=== PATIENT | female | born 1975 | race Caucasian/White ===

== ENCOUNTER 2024-09-19 04:33 | Emergency (ER) | payer BC, OTHER ==
[2024-09-19] MEDS ORDERED: Xopenex 1.25 MG/0.5 ML UD NEBULE IH ONE (04:40)
[2024-09-19] MEDS ORDERED: Sodium Chloride 3 ML UD NEBULES IH ONE (04:40)
[2024-09-19 04:46] VITALS: TEMP 98
--- NOTE | 2024-09-19 04:53 | ERPHSYRPT ---
- History of Present Illness Time Seen by Provider: 09/19/24 04:35 Source: patient, EMS Exam Limitations: clinical condition Patient Subjective Stated Complaint: c/o asthma attack and SOB Triage Nursing Assessment: patient brought to ED by ambulance with c/o asthma attack and shortness of breath. patient was outside burning leaves and started to feel SOB last night around 2200, patient has a duoneb and solumedrol per EMS, patiwnt was 95-97% on RA after treatment. patient has wheezing throughout, skin w/n/d, brought in by stretcher Physician History: This is a 49-year-old white female patient of Dr. Rhoades who arrives to the emergency department transported by the paramedics secondary to shortness of breath and wheezing. Those symptoms began last evening at approximately 10 PM. Earlier in the afternoon, the patient was burning leaves at her home. Around 10 PM last night she noticed shortness of breath and it had been increasing despite the use of her albuterol inhaler and nebulizer treatment. The paramedics provided her with a DuoNeb treatment as well as 125 mg of intravenous Solu- Medrol. She arrives to the emergency department a heart rate of 122 bpm on the front desk monitor and a room air oxygen saturation level of 95%. Clinically, she states that she is breathing better at this time. She has no chest pain. She has no fevers. She has no abdominal pain. She has had no nausea vomiting or diarrhea symptoms. Timing/Duration: yesterday Severity of Dyspnea-Max: moderate Severity of Dyspnea-Current: mild (To moderate) Possible Cause: occasional episodes Modifying Factors: Improves With: albuterol nebulizer, oxygen, rest Associated Symptoms: wheezing, No chest pain/discomfort Allergies/Adverse Reactions: nitroglycerin [From Nitrostat] Allergy (Verified 09/19/24 04:35) Penicillins Allergy (Verified 09/19/24 04:35) Home Medications: dilTIAZem HCL [Cardizem] 30 mg BID 05/13/15 [History] Hx Tetanus, Diphtheria Vaccination/Date Given: No (unsure) Hx Influenza Vaccination/Date Given: Yes Hx Pneumococcal Vaccination/Date Given: No Travel Risk - International Travel Have you traveled outside of the country in past 3 weeks: No - Emerging Infectious Disease Are you exhibiting symptoms associated with any current EIDs: Yes Symptoms: Shortness of Breath - Review of Systems Constitutional: No Symptoms Eyes: No Symptoms Ears, Nose, & Throat: No Symptoms Respiratory: Dyspnea, Wheezing Cardiac: No Symptoms Abdominal/Gastrointestinal: No Symptoms Genitourinary Symptoms: No Symptoms Musculoskeletal: No Symptoms Skin: No Symptoms Neurological: No Symptoms Psychological: No Symptoms Endocrine: No Symptoms Hematologic/Lymphatic: No Symptoms Immunological/Allergic: No Symptoms All Other Systems: Reviewed and Negative - Past Medical History Pertinent Past Medical History: Yes Cardiac History: Arrhythmia, Other Respiratory History: Asthma Other Medical History: HX OF MVP - Past Surgical History Past Surgical History: Yes Female Surgical History: Hysterectomy Other Surgical History: D&C - Female History Hx Last Menstrual Period: unsure Hx Now: No (hysterectomy) - Social History Smoking Status: Never smoker Exposure to second hand smoke: No Drug Use: none - Social Determinants of Health Will the patient participate in the screening: Yes Do you worry about a steady place to live?: No Do you have any problems with any of the following?: No known problems In the past 12 months,have you had to go without utilities?: No Transportation Issues: No Has anyone in your support network made you feel unsafe?: No Have you or anyone in your house had to go w/o enough food: No - Nursing Vital Signs Nursing Vital Signs: Initial Vital Signs Pulse Rate 129 H 09/19/24 04:31 Respiratory Rate 23 09/19/24 04:31 Blood Pressure 105/89 09/19/24 04:31 O2 Sat by Pulse Oximetry 94 L 09/19/24 04:31 Pain Scale Pain Intensity 0 - Physical Exam General Appearance: mild distress, alert, anxiety, thin Eye Exam: PERRL/EOMI, eyes nml inspection Ears, Nose, Throat Exam: hearing grossly normal, normal ENT inspection, normal pharynx Neck Exam: normal inspection, non-tender, supple, full range of motion Respiratory Exam: respiratory distress (Mild), airway intact, wheezing (Bilateral diffuse expiratory wheezing), No chest tenderness Cardiovascular/Chest Exam: tachycardia Abdominal/Gastrointestinal Exam: soft, normal bowel sounds, No tenderness Rectal Exam: not done Extremity Exam: non-tender, normal range of motion, normal inspection, no calf tenderness, no pedal edema, pelvis stable Neurologic Exam: alert, oriented x 3, cooperative, frame coverer II-XII nml as tested, sensation nml Skin Exam: normal color, warm, dry Lymphatic Exam: No adenopathy SpO2 Interpretation: normal SpO2: 95 O2 Delivery: Room Air - Course Nursing assessment & vital signs reviewed: Yes Ordered Tests: Active Orders 24 hr Category Date Time Status CHEST 1 VIEW (PORTABLE) Stat Exams 09/19/24 04:54 Taken BLOOD CULTURE Stat Lab 09/19/24 05:26 Received BMP Stat Lab 09/19/24 05:26 Completed CBC W DIFF Stat Lab 09/19/24 05:26 Completed Manual Differential NC Stat Lab 09/19/24 05:26 Completed Respiratory Therapy Assessment DAILY RT 09/19/24 04:56 Active Medication Summary Discontinued Medications Generic Name Dose Route Start Last Admin Trade Name Freq PRN Reason Stop Dose Admin Methylprednisolone Sodium 0 mg 09/19/24 05:13 09/19/24 05:27 Succinate 80 mg/ Sterile Water IV 09/19/24 05:14 80 mg 2 ml STAT ONE Administration Doxycycline Hyclate 100 mg 09/19/24 06:06 09/19/24 06:09 Doxycycline Hyclate 100 Mg Tablet PO 09/19/24 06:07 100 mg STAT ONE Administration Doxycycline Hyclate Confirm 09/19/24 06:09 Doxycycline Hyclate 100 Mg Tablet Administered 09/19/24 06:10 Dose 100 mg .ROUTE .STK-MED ONE Levalbuterol HCl 1.25 mg 09/19/24 04:55 09/19/24 04:55 Levalbuterol Hcl 1.25 Mg/0.5 Ml Neb IH 09/19/24 04:56 1.25 mg STAT ONE Administration Potassium Chloride 20 meq 09/19/24 05:53 09/19/24 06:03 Potassium Chloride Tab 10 Meq Tab PO 09/19/24 05:54 20 meq STAT ONE Administration Potassium Chloride Confirm 09/19/24 06:02 Potassium Chloride Tab 10 Meq Tab Administered 09/19/24 06:03 Dose 20 meq .ROUTE .STK-MED ONE Lab/Rad Data: Laboratory Result Diagrams 09/19/24 05:26 09/19/24 05:26 Laboratory Results 09/19/24 09/19/24 Range/Units 05: 05:26 WBC 24.5 H (3.98-10.04) x10^3/uL RBC 3.66 L (3.93-5.22) x10^6/uL Hgb 11.0 L (11.2-15.7) g/dL Hct 33.3 L (34.1-44.9) % MCV 91.0 (79.4-94.8) fL MCH 30.1 (25.6-32.2) pg MCHC 33.0 (32.2-35.5) g/dL RDW 12.9 (11.7-14.4) % Plt Count 226 (182-369) x10^3/uL MPV 9.3 L (9.4-12.3) fL Segmented Neutrophils 83 H (34.0-71.1) % Band Neutrophils 6 H (0.0-2.0) % Lymphocytes (Manual) 9 L (19.3-51.7) % Eosinophils (Manual) 2 (0.7-5.8) % Platelet Estimate NORMAL (NORMAL) RBC Morphology NORMAL Sodium 139 (135-145) mmol/L Potassium 3.0 L* (3.5-5.1) mmol/L Chloride 99 (98-107) mmol/L Carbon Dioxide 29 (22-30) mmol/L Anion Gap 13.6 (5-15) MEQ/L BUN 9 (7-17) mg/dL Creatinine 0.51 L (0.52-1.04) mg/dL Estimated GFR 115.1 ML/MIN Glucose 154 H (74-106) mg/dL Calcium 9.2 (8.4-10.2) mg/dL - Progress Progress: improved Air Movement: fair Progress Note: 09/19/24 04:52 My medical decision making and the assignment of moderate complexity to this patient's medical issue today is based on review of the patient's past medical history, review the patient's medication list, reviewed patient drug allergy list, history present illness and physical findings on examination. The workup in this patient includes placement of intravenous line, nebulizer treatments Xopenex, repeat Solu-Medrol 125 mg intravenously, CBC, BMP, and chest x-ray. Differential diagnosis includes but is not limited to upper respiratory infection, acute asthmatic attack/exacerbation, allergic reaction 09/19/24 06:03 I interpreted the patient's laboratory data results. Based on the laboratory data results, the patient does have a leukocytosis. This is most likely a stress reaction to her acute asthma attack/exacerbation. However, there are findings to suggest possibly an early infiltrate in the right lower lobe on her chest x-ray. In addition, she has a low potassium level 3.0. We will provide her with intravenous antibiotic and oral potassium level and remotely send antibiotics, steroids and potassium prescriptions to her pharmacy. 09/19/24 06:04 I interpreted the patient's preliminary chest x-ray report. My interpretation is that this patient has an early right lower lobe infiltrate. Blood Culture(s) Obtained: Yes Antibiotics given: Yes Counseled pt/family regarding: lab results, diagnosis, need for follow-up, rad results Medical Desision Making - Independent Historian Additional History obtained from: Medical Billing Service/EMT - Diagnostic Testing Diagnostic test were ordered, analyzed, and reviewed by me: Yes Radiological Interpretation: Interpreted by me - Risk of complications The pt has a mod risk of morbidity or mortality based on: Need for prescription drug management - Departure Departure Disposition: Home Clinical Impression: Acute asthma exacerbation, Right pulmonary infiltrate on CXR, Hypokalemia Condition: Stable Critical Care Time: No Referrals: LAVERNE RHOADES MD [Primary Care Provider, [facility]] - Follow up/PCP as directed Additional Instructions: Drink plenty of clear liquids before advancing your diet. Avoid exposure to any type of smoke. Use your nebulizers every 4 hours while awake for the next 48 hours. Take your steroids, antibiotic and potassium prescriptions as prescribed. Call your primary care provider today, 09/19/2024, to make arrangements for follow-up appointment for further evaluation and management Prescriptions: Prednisone 10 mg [Deltasone 10 mg] 10 mg PO TID #12 tablet Potassium Chloride Tab* [Klor Con] 10 meq PO BID #5 tab Doxycycline Hyclate 100 mg [Vibramycin 100 MG] 100 mg PO BID #14 tab
[2024-09-19] MEDS: Xopenex 1.25 MG/0.5 ML UD NEBULE IH ONE (04:55)
[2024-09-19] MEDS ORDERED: solu-MEDROL ONE (05:23)
[2024-09-19] MEDS: solu-MEDROL 80 MG, Sterile H2O 10 ml 2 ML IV ONE (05:27)
[2024-09-19 05:29] LABS: Hematocrit 33.3 % (34.1-44.9); Mean Corpuscular Hemoglobin 30.1 pg (25.6-32.2); Mean Platelet Volume 9.3 fL (9.4-12.3); Platelet Count 226 x10^3/uL (182-369); Red Blood Count 3.66 x10^6/uL (3.93-5.22); Red Cell Distribution Width 12.9 % (11.7-14.4); White Blood Count 24.5 x10^3/uL (3.98-10.04)
[2024-09-19 05:42] LABS: ANION GAP 13.6 MEQ/L (5-15); Calcium 9.2 mg/dL (8.4-10.2); Creatinine 1 0.51 mg/dL (0.52-1.04); EST GLOMERULAR FILTRATION RATE 115.1 ML/MIN
[2024-09-19 05:47] LABS: BAND 6 % (0.0-2.0); Eosinophil 2 % (0.7-5.8); Lymphocytes 9 % (19.3-51.7); Neutrophils 83 % (34.0-71.1); Platelet Estimate NORMAL (NORMAL); Total Cells Counted 100
[2024-09-19] MEDS ORDERED: Klor Con ONE (06:02)
[2024-09-19] MEDS: Klor Con PO ONE (06:03)
[2024-09-19] MEDS ORDERED: Vibramycin 100 MG ONE (06:09)
[2024-09-19] MEDS: Vibramycin 100 MG PO ONE (06:09)
[2024-09-19 06:38] VITALS: BP 101/51; PULSE 106; RESP 24; O2SAT 96
--- NOTE | 2024-09-19 08:45 | XRAY ---
Indication: Wheezing. Short of breath. Comparison: July 30, 2015 Portable chest demonstrates new right infrahilar infiltrate/atelectasis and left Port-A-Cath. Remaining heart and left lung unremarkable. Bony thorax intact again with minimal dextroscoliosis.
== END 2024-09-19 06:39 | disposition home or self-care (01) ==
LOC: ED 04:33
DX: J45.901 Unspecified asthma with (acute) exacerbation (principal); R91.8 Other nonspecific abnormal finding of lung field; E87.6 Hypokalemia; R06.02 Shortness of breath; Z79.52 Long term (current) use of systemic steroids; Z79.899 Other long term (current) drug therapy
CPT/HCPCS: 36415; 71045; 80048; 85025; 87040; 94640; 96374; 99284; J2919; A9270-GY